=== PATIENT | male | born 1995 | race American Indian/Alaskan Native ===

== ENCOUNTER 2021-10-19 14:44 | Emergency (ER) | payer BC ==
[2021-10-19 17:50] LABS: Absolute Lymphocytes (CBC) 2.8 K/uL (0.7-4.9); Hematocrit 48.2 % (39.6-49.0); Lymphocytes % 33.4 % (15.3-44.8); MCV 87.7 fL (80-100); MPV 7.5 fL (7.6-11.3)
[2021-10-19 18:05] LABS: Urine Bacteria None Seen /HPF (<20); Urine RBC <5 /HPF (None Seen)
[2021-10-19 18:14] LABS: Albumin 4.3 g/dL (3.4-5.0); Bilirubin Total 0.6 mg/dL (0.2-1.0); Potassium 3.5 mmol/L (3.5-5.1); Protein, Total 8.2 g/dL (6.4-8.2)
--- NOTE | 2021-10-19 19:01 | RAD REPORT ---
EXAM DESCRIPTION: CT - Abdomen Pelvis W Contrast - 10/19/2021 6:42 pm CLINICAL HISTORY: Abdominal pain. COMPARISON: None. TECHNIQUE: Computed axial tomography of the abdomen and pelvis was obtained. 100 cc Isovue-300 is ad ministered intravenously. Oral contrast was given. All CT scans are performed using dose optimization technique as appropriate and may include automated exposure control or mA/KV adjustment according to patient size. FINDINGS: The liver, spleen, pancreas, adrenals and kidneys appear unremarkable. The appendix is normal caliber. There is no evidence of diverticulitis Multiple small mesenteric lymph nodes IMPRESSION: Multiple small mesenteric lymph nodes probably reactive
--- NOTE | 2021-10-19 19:07 | EDPHYS ---
Physician Documentation [facility] Name: Samuel Li Age: 25 yrs Sex: Male : 1995 Arrival Date: 10/19/2021 Time: 14:47 Bed Waiting Private MD: ED Physician Andre Callahan HPI: 10/19 16:09 This 25 yrs old Male presents to ER via Ambulatory with complaints of snw Abdominal Pain. 16:09 The patient presents with abdominal pain right lower quadrant. Onset: The snw symptoms/episode began/occurred gradually, 4 day(s) ago, and became persistent 4 days ago. The symptoms do not radiate. The symptoms are described as achy. Severity of pain: At its worst the pain was mild. The patient has not experienced similar symptoms in the past, but family has similar symptoms, mother. The patient has not recently seen a physician. pt states he is leaving for [employer] and his pain is similar to his Mother's s/s when she had appendicitis. Historical: - Allergies: 15:59 No Known Allergies; ph - PMHx: 15:59 None; ph - PSHx: 15:59 None; ph - Social history:: Smoking status: Patient denies any tobacco usage or history of. ROS: 16:08 Constitutional: Negative for fever, chills, and weight loss, Eyes: Negative for injury, snw pain, redness, and discharge, ENT: Negative for injury, pain, and discharge, Neck: Negative for injury, pain, and swelling, Cardiovascular: Negative for chest pain, palpitations, and edema, Respiratory: Negative for shortness of breath, cough, wheezing, and pleuritic chest pain, Back: Negative for injury and pain, : Negative for injury, bleeding, discharge, and swelling, MS/Extremity: Negative for injury and deformity, Skin: Negative for injury, rash, and discoloration, Neuro: Negative for headache, weakness, numbness, tingling, and seizure, Psych: Negative for depression, anxiety, suicide ideation, homicidal ideation, and hallucinations. 16:08 Abdomen/GI: Positive for abdominal pain. Exam: 16:06 Constitutional: This is a well developed, well nourished patient who is awake, alert, snw and in no acute distress. Head/Face: Normocephalic, atraumatic. Eyes: Pupils equal round and reactive to light, extra-ocular motions intact. Lids and lashes normal. Conjunctiva and sclera are non-icteric and not injected. Cornea within normal limits. Periorbital areas with no swelling, redness, or edema. ENT: Nares patent. No nasal discharge, no septal abnormalities noted. Tympanic membranes are normal and external auditory canals are clear. Oropharynx with no redness, swelling, or masses, exudates, or evidence of obstruction, uvula midline. Mucous membranes moist. Neck: Trachea midline, no thyromegaly or masses palpated, and no cervical lymphadenopathy. Supple, full range of motion without nuchal rigidity, or vertebral point tenderness. No Meningismus. Chest/axilla: Normal chest wall appearance and motion. Nontender with no deformity. No lesions are appreciated. Cardiovascular: Regular rate and rhythm with a normal S1 and S2. No gallops, murmurs, or rubs. Normal PMI, no JVD. No pulse deficits. Respiratory: Lungs have equal breath sounds bilaterally, clear to auscultation and percussion. No rales, rhonchi or wheezes noted. No increased work of breathing, no retractions or nasal flaring. Back: No spinal tenderness. No costovertebral tenderness. Full range of motion. Skin: Warm, dry with normal turgor. Normal color with no rashes, no lesions, and no evidence of cellulitis. MS/ Extremity: Pulses equal, no cyanosis. Neurovascular intact. Full, normal range of motion. Neuro: Awake and alert, GCS 15, oriented to person, place, time, and situation. Cranial nerves II-XII grossly intact. Motor strength 5/5 in all extremities. Sensory grossly intact. Cerebellar exam normal. Normal gait. Psych: Awake, alert, with orientation to person, place and time. Behavior, mood, and affect are within normal limits. 16:06 Abdomen/GI: Inspection: abdomen appears normal, Bowel sounds: normal, in all quadrants, Palpation: mild abdominal tenderness, in the anterior aspect of right lateral abdomen. Vital Signs: 15:55 BP 144 / 87; Pulse 77; Resp 18; Temp 98.3; Pulse Ox 100% on R/A; Weight 79.38 kg; ph Height 5 ft. 10 in. (177.80 cm); 15:55 Body Mass Index 25.11 (79.38 kg, 177.80 cm) ph MDM: 15:59 Patient medically screened. snw 19:08 Data reviewed: vital signs, nurses notes. Data interpreted: Pulse oximetry: on room air snw is 100 %. Interpretation: normal. Counseling: I had a detailed discussion with the patient and/or guardian regarding: the historical points, exam findings, and any diagnostic results supporting the discharge/admit diagnosis, the presence of at least one elevated blood pressure reading (>120/80) during this emergency department visit, lab results, radiology results, the need for outpatient follow up. Response to treatment: There is no appreciated change of the patient's symptoms at this time. Special discussion: I have referred the patient to see his PCP for further evaluation of high blood pressure. Based on the history and exam findings, there is no indication for further emergent testing or inpatient evaluation. I discussed with the patient/guardian the need to see the primary care provider for further evaluation of the symptoms. 10/19 16:00 Order name: CBC with Diff; Complete Time: 18:02 snw 10/19 16:00 Order name: CMP; Complete Time: 18:37 snw 10/19 16:00 Order name: Lipase; Complete Time: 18:37 snw 10/19 16:00 Order name: Urine Microscopic Only; Complete Time: 18:08 snw 10/19 16:00 Order name: IV Saline Lock; Complete Time: 17:36 snw 10/19 16:00 Order name: CT Abd/Pelvis - PO and IV Contrast; Complete Time: 19:05 snw 10/19 16:00 Order name: Labs collected and sent; Complete Time: 17:36 snw Administered Medications: No medications were administered Disposition: 22:06 Co-signature as Attending Physician, Andre BULL was immediately available on-site ms3 in the Emergency Department for consultation in the care of the patient.. Disposition Summary: 10/19/21 19:07 Discharge Ordered Location: Home snw Condition: Stable snw Diagnosis - Nonspecific mesenteric lymphadenitis snw Followup: snw - With: Emergency Department - When: As needed - Reason: Worsening of condition Followup: snw - With: Private Physician - When: 2 - 3 days - Reason: Recheck today's complaints, Continuance of care, Re-evaluation by your physician Discharge Instructions: - Discharge Summary Sheet snw - Mesenteric Adenitis, Adult snw Forms: - Medication Reconciliation Form snw - Thank You Letter snw - Antibiotic Education snw - Prescription Opioid Use snw Prescriptions: - Mobic 7.5 mg Oral Tablet - take 1 tablet by ORAL route once daily take with food; 20 tablet; Refills: 0, snw Product Selection Permitted Signatures: Dispatcher [employer] EDJoy Browne, ANTOINETTE-C WOMEN NURSE-Csnw Elyssa Warren RN RN ph Andre Callahan, DO ms3
--- NOTE | 2021-10-19 19:07 | ER ---
Nurse's Notes [facility] Name: Samuel Li Age: 25 yrs Sex: Male : 1995 Arrival Date: 10/19/2021 Time: 14:47 Bed Waiting [facility] MD: Diagnosis: Nonspecific mesenteric lymphadenitis Presentation: 10/19 15:55 Chief complaint: Patient states: R flank pain since Tuesday, denies N/V/D or fever. ph Coronavirus screen: Vaccine status: Patient reports receiving the 2nd dose of the covid vaccine. Ebola Screen: No symptoms or risks identified at this time. Initial Sepsis Screen: Does the patient meet any 2 criteria? No. Patient's initial sepsis screen is negative. Does the patient have a suspected source of infection? No. Patient's initial sepsis screen is negative. Risk Assessment: Do you want to hurt yourself or someone else? Patient reports no desire to harm self or others. Onset of symptoms was October 19, 2021. 15:55 Method Of Arrival: Ambulatory ph 15:55 Acuity: LATRICIA 3 ph Triage Assessment: 16:00 General: Appears in no apparent distress. comfortable, well groomed, Behavior is calm, ph cooperative, appropriate for age, Denies fever. Pain: Complains of pain in anterior aspect of right lateral abdomen. GI: Abdomen is non-distended, Reports lower abdominal pain, upper abdominal pain, Patient currently denies diarrhea, nausea, vomiting. Historical: - Allergies: 15:59 No Known Allergies; ph - PMHx: 15:59 None; ph - PSHx: 15:59 None; ph - Social history:: Smoking status: Patient denies any tobacco usage or history of. Screenin:22 Abuse screen: Denies threats or abuse. Nutritional screening: No deficits noted. vc1 Tuberculosis screening: No symptoms or risk factors identified. Fall Risk None identified. Assessment: 16:30 General: SEE TRIAGE ASSESSMENT. ph 19:23 Reassessment: Patient is alert, oriented x 3, equal unlabored respirations, skin vc1 warm/dry/pink. Patient states feeling better. Vital Signs: 15:55 BP 144 / 87; Pulse 77; Resp 18; Temp 98.3; Pulse Ox 100% on R/A; Weight 79.38 kg; ph Height 5 ft. 10 in. (177.80 cm); 15:55 Body Mass Index 25.11 (79.38 kg, 177.80 cm) ph ED Course: 14:47 Patient arrived in ED. mr 15:22 Joy Seymour FNP-C is [facility]. snw 15:22 Andre Callahan DO is Attending Physician. snw 15:58 Triage completed. ph 15:58 Arm band placed on Patient placed in waiting room, Patient notified of wait time. ph 18:44 CT Abd/Pelvis - PO and IV Contrast In Process Unspecified. EDMS 19:20 Elyssa Warren, RN is Primary Nurse. ph 19:23 No provider procedures requiring assistance completed. IV discontinued, intact, vc1 bleeding controlled, No redness/swelling at site. Pressure dressing applied. Administered Medications: No medications were administered Medication: 19:23 VIS not applicable for this client. vc1 Outcome: 19:07 Discharge ordered by . snw 19:23 Discharged to home ambulatory. vc1 19:23 Condition: good 19:23 Discharge instructions given to patient, Instructed on discharge instructions, follow up and referral plans. medication usage, Demonstrated understanding of instructions, follow-up care, medications, Prescriptions given X 1. 19:23 Patient left the ED. vc1 Signatures: Dispatcher [employer] EDID Joy Seymour FNP-C REPORT CHECKER-Weston Shannon Massey mr Elyssa Warren, RN RN Ángela Aguilar RN RN vc1
[2021-10-19 20:42] VITALS: BP 144/87; TEMP 98.3; O2SAT 100
== END 2021-10-19 19:23 | disposition home or self-care (01) ==
LOC: ER 14:44
DX: I88.0 Nonspecific mesenteric lymphadenitis (principal)
CPT/HCPCS: 85025; 36415; 81015; 83690; 80053; 74177; Q9967; 99283